=== PATIENT | male | born 1990 | race Caucasian/White ===

== ENCOUNTER 2019-07-15 19:12 | Emergency (ER) | payer BC ==
[~2019-07-15] VITALS: Ht 185.4 cm; Wt 94.8 kg
[2019-07-15 19:22] VITALS: Ht 185.4 cm; Wt 94.8 kg
[2019-07-15 21:54] VITALS: BP 116/66
== END 2019-07-15 21:54 | disposition home or self-care (01) ==
LOC: ED 19:12
DX: F41.9 Anxiety disorder, unspecified (principal); Z72.0 Tobacco use
CPT/HCPCS: 82962; Q0092